=== PATIENT | male | born 1990 | race Caucasian/White ===

== ENCOUNTER 2023-04-18 11:37 | Emergency (ER) | payer MEDICAID ==
[~2023-04-18] VITALS: Ht 175.3 cm; Wt 136.1 kg
[2023-04-18 11:45] VITALS: O2SAT 100
[2023-04-18] MEDS ORDERED: diphenhydrAMINE 50 MG/1 ML VIAL ONE (12:30)
[2023-04-18] MEDS ORDERED: diphenhydrAMINE 50 MG/1 ML VIAL IM ONE (12:30)
[2023-04-18] MEDS ORDERED: MORPHINE SULFATE 4 MG/1 ML DISP.SYRIN IM ONE (12:30)
[2023-04-18] MEDS ORDERED: MORPHINE SULFATE 2 MG/1 ML DISP.SYRIN ONE (12:31)
[2023-04-18] MEDS ORDERED: MORPHINE SULFATE 4 MG/1 ML DISP.SYRIN ONE (12:31)
[2023-04-18] MEDS ORDERED: OXYC-133 PO (13:13)
== END 2023-04-18 13:38 | disposition home or self-care (01) ==
LOC: ER 11:37
DX: S82.842A Displaced bimalleolar fracture of left lower leg, initial encounter for closed fracture (principal); Z79.899 Other long term (current) drug therapy; W01.0XXA Fall on same level from slipping, tripping and stumbling without subsequent striking against object, initial encounter; Y93.89 Activity, other specified; Y92.89 Other specified places as the place of occurrence of the external cause; Y99.8 Other external cause status
CPT/HCPCS: 29515; 73610; 73630; 96372; 99284; J1200; J2270; A4663

== ENCOUNTER 2023-04-30 16:38 | Emergency (ER) | payer MEDICAID ==
[~2023-04-30] VITALS: Ht 175.3 cm; Wt 136.1 kg
[~2023-04-30 16:38] MED LIST: OXYC-133 PO
[2023-04-30] MEDS ORDERED: OXYC-133 PO (16:54)
[2023-04-30 17:04] VITALS: BP 139/94; TEMP 98.7; O2SAT 98
== END 2023-04-30 17:11 | disposition home or self-care (01) ==
LOC: ER 16:39
DX: S82.842D Displaced bimalleolar fracture of left lower leg, subsequent encounter for closed fracture with routine healing (principal); Z79.899 Other long term (current) drug therapy; Z76.0 Encounter for issue of repeat prescription; X58.XXXD Exposure to other specified factors, subsequent encounter
CPT/HCPCS: A4663

== ENCOUNTER 2023-05-27 13:05 | Emergency (ER) | payer OTHER, MEDICAID ==
[~2023-05-27] VITALS: Ht 175.3 cm; Wt 133.8 kg
[2023-05-27 13:10] VITALS: O2SAT 97
[2023-05-27] MEDS ORDERED: ACET325C7 PO (13:30)
[2023-05-27] MEDS ORDERED: IBUP-1957 PO (13:30)
[2023-05-27] MEDS ORDERED: OXYC-133 PO (13:53)
[2023-05-27] MEDS ORDERED: IBUP-1955 PO (13:53)
[2023-05-27] MEDS ORDERED: NALO4SPR BNOSTRILS (14:34)
== END 2023-05-27 14:02 | disposition home or self-care (01) ==
LOC: ER 13:05
DX: S82.842D Displaced bimalleolar fracture of left lower leg, subsequent encounter for closed fracture with routine healing (principal); Z76.0 Encounter for issue of repeat prescription; Z79.1 Long term (current) use of non-steroidal anti-inflammatories (NSAID); Z79.899 Other long term (current) drug therapy; X58.XXXD Exposure to other specified factors, subsequent encounter
CPT/HCPCS: A4606; A4663